=== PATIENT | female | born 1990 | race Hispanic/Latino ===

== ENCOUNTER 2017-03-02 08:00 | Inpatient (IN) | payer OTHER ==
[2017-03-02] VITALS (11 sets, daily range): BP systolic 107–155; BP diastolic 57–96
[~2017-03-02] VITALS: Ht 147.3 cm; Wt 76.6 kg
--- NOTE | 2017-03-02 07:50 | NUR ---
WITH RACHELLE 02/28/17 CAME TO TRIAGE C/O CONTRACTIONS THAT STARTED LAST NIGHT AT 2100. PT APPEARS UNCOMFORTABLE, BREATHING HEAVY WITH EACH CONTRACTION. HEIGHT/WEIGHT/UA/DOA OBTAINED. ASSISTED TO BED, EFM STARTED. INITIAL ASSESSMENT DONE.
[~2017-03-02 08:00] MED LIST: PRE-NATAL PO
--- NOTE | 2017-03-02 08:00 | NUR ---
DR. CHUNG AT BEDSIDE, ASSESSING PT, SVE DONE, WITH BULGING BAG PER MD. WILL MOVE PT TO BIRTHING ROOM #1.
--- NOTE | 2017-03-02 08:05 | NUR ---
PT MOVED TO BIRTHING ROOM #1, AMBULATORY AT THIS TIME. CONSENTS SIGNED. DISCUSSED PLAN OF CARE WITH PT, PT VERBALIZED UNDERSTANDING.
[2017-03-02 08:10] LABS: URINE BILIRUBIN - DIPSTICK NEGATIVE (NEGATIVE); URINE BLOOD DIPSTICK LARGE (NEGATIVE); URINE COLOR YELLOW; URINE GLUCOSE - DIPSTICK NEGATIVE (NEGATIVE); URINE KETONE 15 mg/dL (NEGATIVE); URINE LEUK ESTERASE TRACE (NEGATIVE); URINE NITRITE - DIPSTICK NEGATIVE (Negative); URINE PROTEIN - DIPSTICK 30 mg/dL (NEG-TRACE); URINE SPECIFIC GRAVITY 1.025; URINE UROBILINOGEN - DIPSTICK 0.2 E.U./dL (0.2)
[2017-03-02 08:11] LABS: URINE CLARITY TURBID
[2017-03-02 08:12] LABS: BARBITURATES NEGATIVE (NEGATIVE); COCAINE NEGATIVE (NEGATIVE); METHADONE NEGATIVE (NEGATIVE); OXCYCODONE NEGATIVE (NEGATIVE); TETRAHYDROCANNABIONOL NEGATIVE (NEGATIVE); TRICYLIC ANTIDEPRESSANTS NEGATIVE (NEGATIVE)
--- NOTE | 2017-03-02 08:15 | NUR ---
18G IV STARTED ON LEFT WRIST, LABS DRAWN, PT TOLERATED PROCEDURE WELL.
[2017-03-02 08:36] LABS: URINE RBC TNTC RBC/hpf (0-5); URINE SQUAMOUS EPITHELIAL CELL FEW EPI/hpf (0-FEW)
--- NOTE | 2017-03-02 08:45 | NUR ---
NST REACTIVE, EFM OFF, PT REPOSITIONED TO HANDS AND KNEES AT THIS TIME. SUPPORT PERSON APPLYING PRESSURE TO PT'S LOWER BACK TO ASSIST WITH BACK PAIN.
--- NOTE | 2017-03-02 09:03 | NUR ---
PT UP TO BATHROOM, VOIDED 100ML, THEN SITTING AT EDGE OF BED, EFM RESTARTED.
[2017-03-02 09:04] LABS: HEMATOCRIT 42.3 % (37.0-47.0); HEMOGLOBIN 14.9 g/dl (12.0-16.0); IMMATURE GRANULOCYTES 0.5 % (0.0-1.0); MEAN CELL VOLUME 85.8 fL CALC (80.0-100.0); MEAN CORPUSCULAR HGB 30.2 pG CALC (26.0-32.0); MEAN CORPUSCULAR HGB CONC 35.2 g/L CALC (32.0-36.0); NEUT# 11.39 thou/uL (2.00-7.15); RED BLOOD COUNT 4.93 mill/uL (4.20-5.60); RED CELL DISTRI WIDTH 13.4 % (11.5-15.5)
--- NOTE | 2017-03-02 09:12 | NUR ---
PT STANDING UP AT BEDSIDE AT THIS TIME.
--- NOTE | 2017-03-02 09:27 | NUR ---
PT WAS STANDING UP, SWAYING SIDE TO SIDE DURING A CONTRACTION AND SMALL AMOUNT OF YELLOW LIQUID NOTED ON THE FLOOR, POSSIBLE SROM VS URINE. PT ASSISTED TO BED, SVE DONE, 7-8100/0, BULGING BAG FELT. WILL MONITOR.
--- NOTE | 2017-03-02 09:30 | NUR ---
PT REPOSITIONED TO RIGHT TILT.
[2017-03-02 09:41] LABS: ALBUMIN 3.6 g/dL (3.2-5.0); ALKALINE PHOSPHATASE 194 u/l (38-126); ANION GAP 18 (6-22 (CALC)); BILIRUBIN, TOTAL 0.5 mg/dL (0.0-1.4); BUN 8 mg/dL (7-17); BUN/CREATININE RATIO 16 (12-20 (CALC)); CALCIUM 9.2 mg/dL (8.4-10.2); CARBON DIOXIDE 15 mmol/l (22-30); CHLORIDE 108 mmol/l (95-108); CREATININE 0.5 mg/dL (0.5-1.0); GFR > 60 ML/MIN (>=60 (CALC)); GFR FOR AFR.AMER. > 60 ML/MIN (>=60 (CALC)); GLUCOSE 138 mg/dL (65-105); POTASSIUM 4.1 mmol/l (3.5-5.1); SGOT/AST 29 u/l (14-36); SGPT/ALT 45 u/l (9-52); SODIUM 137 mmol/l (137-146); TOTAL PROTEIN 6.9 g/dL (6.3-8.2)
--- NOTE | 2017-03-02 09:43 | NUR ---
DR. CHUNG AT BEDSIDE, SVE DONE, /0 TO +1. AROM FOR CLEAR FLUID AT THIS TIME PER MD.
--- NOTE | 2017-03-02 09:58 | NUR ---
CATEGORY 1 TRACING, EFM OFF PT DESIRES TO AMBULATE IN THE ROOM AT THIS TIME, COPING WELL, BREATHING WITH EACH CONTRACTION.
--- NOTE | 2017-03-02 10:06 | NUR ---
PT STANDING UP, LEANING FOWARD WITH SUPPORT OF THE BED, SWAYING SIDE TO SIDE.
--- NOTE | 2017-03-02 10:09 | NUR ---
PT STATES SHE WANTS TO PUSH, REPOSITIONED BACK TO BED, EFM RESTARTED, SVE COMPLETE, CALLED FOR DR. CHUNG TO ATTEND DELIVERY.
--- NOTE | 2017-03-02 10:10 | NUR ---
DR. CHUNG AT BEDSIDE, PREPPING FOR DELIVERY.
--- NOTE | 2017-03-02 10:17 | NUR ---
EFM BETWEEN 1008 AND 1017 SHOWED FHR BASELINE OF 135 WITH MINIMAL VARIABILITY, ACCELS PRESENT, VARIABLE DECEL AND 2 CONTRACTIONS WHICH PT WAS PUSHING.
--- NOTE | 2017-03-02 10:20 | NUR ---
OF MALE BY DR. CHUNG. SEE DELIVERY ROOM RECORD.
--- NOTE | 2017-03-02 10:25 | NUR ---
PLACENTA OUT AT THIS TIME. PITOCIN 20 UNITS IN 1000ML LR RUNNING AT BOLUS. WILL GIVE PT CYTOTEC PER ORDER. SEE FUNDAL CHECKS FOR FURTHER DOCUMENTATION.
--- NOTE | 2017-03-02 11:20 | NUR ---
PT UP TO BATHROOM, UNABLE TO VOID, PERICARE DONE, PANTIES AND PADS PLACED. GOWN CHANGED. PT THEN TRANSFERED TO ROOM 203 VIA WHEELCHAIR, IN STABLE CONDITION. PT TOLERATED ACTIVITY WELL WITHOUT DIZZINESS. ORIENTED TO NEW ROOM. TEACHING DONE WITH PT AND SIGNIFICANT OTHER, BOTH VERBALIZED UNDERSTANDING. PT DENIES ANY PAIN OR NEEDS AT THIS TIME.
--- NOTE | 2017-03-02 12:59 | NUR ---
PT MEDICATED WITH MOTRIN AT THIS TIME FOR ABDOMINAL CRAMPING, PT HAS VOIDED, DOING WELL. DENIES ANY OTHER NEEDS.
--- NOTE | 2017-03-02 14:25 | NUR ---
PT RESTING, DENIES ANY PAIN OR NEEDS. IVF DONE INFUSING, SALINE LOCKED AT THIS TIME. INSTRUCTED PT ABOUT CERTIFICATE AND TEACHING PAPERS, PT VERBALIZED UNDERSTANDING.
--- NOTE | 2017-03-02 16:03 | NUR ---
PT VISITING WITH FAMILY, AMBULATING IN ROOM, DENIES ANY NEEDS.
--- NOTE | 2017-03-02 17:00 | NUR ---
VS DONE, STABLE, DENIES ANY PAIN. PT GOT UP IN THE SHOWER AT THIS TIME. FAMILY AT BEDSIDE.
--- NOTE | 2017-03-02 19:06 | NUR ---
185: REPORT RECEIVED FROM SHEMAR LOREDO RN ON PT STATUS. PT SITTING IN RECLINER FEEDING . COMPLAINS OF PAIN. 1905: MEDICATED WITH MOTRIN 600MG PO FOR PAIN. SEE E-MAR FOR DETAILS.
--- NOTE | 2017-03-02 20:08 | NUR ---
PT DENIES PAIN AFTER RECEIVING MOTRIN. SITS ON SIDE OF BED. BED IN LOW POSITION. CALL LIGHT WITHIN REACH. NO OTHER CONCERNS. LOOKING OVER HOSPITAL PAPERWORK.
--- NOTE | 2017-03-02 22:04 | NUR ---
PT RESTING WITH EYES CLOSED. NO SIGNS OF DISTRESS. IN CRIB.
--- NOTE | 2017-03-03 01:00 | NUR ---
RESTING WITH EYES CLOSED. NO SIGNS OF DISTRESS. BED IN LOW POSITION, CALL LIGHT WITHIN REACH.
[2017-03-03 04:14] VITALS: BP 105/64
[2017-03-03 04:18] LABS: HEMATOCRIT 38.4 % (37.0-47.0); HEMOGLOBIN 13.3 g/dl (12.0-16.0); IMMATURE GRANULOCYTES 0.5 % (0.0-1.0); MEAN CELL VOLUME 86.5 fL CALC (80.0-100.0); MEAN CORPUSCULAR HGB CONC 34.6 g/L CALC (32.0-36.0); NEUT# 8.7 thou/uL (2.00-7.15); RED BLOOD COUNT 4.44 mill/uL (4.20-5.60); RED CELL DISTRI WIDTH 13.6 % (11.5-15.5)
--- NOTE | 2017-03-03 04:18 | NUR ---
CBC DRAWN FROM RT AC WITHOUT DIFFICULTY. MINIMAL BLEEDING NOTED. ON BED NEXT TO MOTHER. DENIES PAIN.
--- NOTE | 2017-03-03 06:48 | NUR ---
PT REPORT GIVEN TO TERRENCE VICTORIA RN ON PT STATUS. PT LAYING IN BED HOLDING .
[2017-03-03 07:20] VITALS: BP 105/58
--- NOTE | 2017-03-03 07:20 | NUR ---
0648: REPORT RECEIVED BY ADRI CASAS. PT IS RESTING IN BED. PT DENIES ANY NEEDS AT THIS TIME. 0713: DR. CHUNG AT BEDSIDE. DISCUSSED PLAN OF CARE WITH PT AND THAT SHE MAY GO HOME TODAY. PT VERBALIZED UNDERSTANDING. 0720: ASSESSMENT DONE, AND VS WNL CHARTED. PT STATED THAT SHE DOES NOT HAVE PAIN AT THIS TIME. SETUP PT TO WATCH TIGR VIDEOS. PT S/O IN ROOM. PT DENIES ANY NEEDS AT THIS TIME.
--- NOTE | 2017-03-03 10:16 | NUR ---
DISCHARGE INSTRUCTION GIVEN AND PT VERBALIZED UNDERSTADING. MOTRIN PRESCRIPTION GIVEN. PT DOES NOT HAVE ANY QUESTIONS AT THIS TIME. S/O IN ROOM. PT DENIES ANY NEEDS AT THIS TIME.
--- NOTE | 2017-03-03 12:16 | NUR ---
PT IS SITTING IN THE SIDE OF THE BED EATING LUNCH. PT DENIES ANY NEEDS AT THIS TIME.
--- NOTE | 2017-03-03 13:55 | NUR ---
PT WENT VIA WHEELCHAIR TO CAR IN STABLE CONDITION TO HOME.
== END 2017-03-03 13:55 | disposition home or self-care (01) | DRG 775 ==
LOC: OBOP 08:00 → OB 08:00 → OBOP 08:09 → OB 08:10
PROVIDERS: ADMIT Obstetrics & Gynecology; ATTEND Obstetrics & Gynecology
PROC: 10E0XZZ Delivery of Products of Conception, External Approach (ICD-10-PCS; principal; 2017-03-02)
PROC: 10907ZC Drainage of Amniotic Fluid, Therapeutic from Products of Conception, Via Natural or Artificial Opening (ICD-10-PCS; 2017-03-02)
DX: O80 Encounter for full-term uncomplicated delivery (principal); Z37.0 Single live birth; Z3A.40 40 weeks gestation of pregnancy